=== PATIENT | male | born 1960 | race African-American/Black ===

== ENCOUNTER 2016-10-03 22:40 | Emergency (ER) | payer OTHER ==
[~2016-10-03] VITALS: Ht 182.9 cm; Wt 93.9 kg
[2016-10-03] MEDS ORDERED: IBUPROFEN200 M1 PO (23:14)
[2016-10-03] MEDS ORDERED: CYCL10TA35 PO (23:15)
[2016-10-04 01:20] LABS: PLATELET COUNT 133 K/uL (142-355)
== END 2016-10-04 02:00 | disposition home or self-care (01) ==
LOC: ED 22:40
DX: S39.012A Strain of muscle, fascia and tendon of lower back, initial encounter (principal); X58.XXXA Exposure to other specified factors, initial encounter; Y93.89 Activity, other specified; Y92.89 Other specified places as the place of occurrence of the external cause; B02.8 Zoster with other complications
CPT/HCPCS: 36415; 81000; 85027; 96372; 99283; J1885